=== PATIENT | female | born 1960 | race Hispanic/Latino ===

== ENCOUNTER 2017-12-29 23:06 | Emergency (ER) | payer SELFPAY ==
[2017-12-30 00:20] VITALS: BP 122/81
--- NOTE | 2017-12-30 02:12 | XRay Report ---
FINAL REPORT PROCEDURE: XR FOOT 2V LT TECHNIQUE: LEFT foot radiographs, AP and lateral views. HISTORY: swollen left foot object fell on foot COMPARISON: No prior studies are available for comparison. FINDINGS: Fracture (s) and/or Dislocation(s): None . Alignment: Normal. Joint space(s): Normal. Soft tissues: Normal. Bone mineralization: Normal. Foreign bodies: None. Calcaneal spurring: None. IMPRESSION: Normal Examination.
== END 2017-12-30 04:00 | disposition left against medical advice (07) ==
LOC: ED 23:06
DX: M79.672 Pain in left foot (principal); M79.89 Other specified soft tissue disorders; Z53.21 Procedure and treatment not carried out due to patient leaving prior to being seen by health care provider

== ENCOUNTER 2020-12-01 10:05 | Observation (INO) | payer SELFPAY ==
[2020-12-01] MEDS ORDERED: SODIUM CHLORIDE 0.9% 1000 ML 1,000 ML IV ONE (10:24)
--- NOTE | 2020-12-01 10:25 | Event Note ---
ED Screening Note Date of service: 12/01/20 Time: 10:24 ED Screening Note: 59-year-old female with a past medical history of hepatitis C, anemia, hiatal hernia presents to the ER today with complaints of black tarry stool/and bright red blood in her stool the past couple days. She reports associated abdominal pain. This initial assessment/diagnostic orders/clinical plan/treatment(s) is/are subject to change based on patients health status, clinical progression and re- assessment by fellow clinical providers in the ED. Further treatment and workup at subsequent clinical providers discretion. Patient/guardian urged not to elope from the ED as their condition may be serious if not clinically assessed and managed. Initial orders include: Abdominal pain order set including type and screen
[2020-12-01 10:50] LABS: Basophils # (Auto) 0.1 K/mm3 (0.0-0.1); Basophils % (Auto) 1.1 % (0.0-1.8); Eosinophils # (Auto) 0.1 K/mm3 (0.0-0.4); Lymphocytes % (Auto) 24.2 % (13.4-35.0); Mean Corpuscular HGB Conc 28 % (30-34); Monocytes # (Auto) 0.8 K/mm3 (0.0-0.8); Monocytes % (Auto) 9.9 % (0.0-7.3); Platelet Count 262 K/mm3 (140-440); Red Blood Count 4.19 M/mm3 (3.65-5.03)
[2020-12-01] MEDS ORDERED: PANTOPRAZOLE 40 MG INJ IV ONE (10:52)
[2020-12-01 10:53] LABS: Hematocrit 22.1 % (30.3-42.9); Hemoglobin 6.2 gm/dl (10.1-14.3); Mean Corpuscular Volume 53 fl (79-97); Red Cell Distribution Width 20.5 % (13.2-15.2)
--- NOTE | 2020-12-01 10:59 | Emergency Department Report ---
ED General Adult HPI - General Chief complaint: GI Bleed Stated complaint: POSS BLEEDING ULCER Time Seen by Provider: 12/01/20 10:37 Source: patient Mode of arrival: Ambulatory Limitations: No Limitations - History of Present Illness Initial comments: The patient presents to the emergency department with a chief complaint of dark stools. Patient states she has a history of ulcers and takes Protonix daily. Patient states 3 days ago she began to have slight abdominal pain and upset stomach. Patient states at that time she took Imodium with relief of her symptoms. Patient then states the next morning she had dark stools but is concerned that she was having blood per rectum. Patient states that she has been out of her Protonix for the last couple of days as well. Denies chest pain, shortness breath, or headache -: Sudden Location: abdomen Severity scale (0 -10): 1 Quality: burning Consistency: constant Improves with: none Worsens with: none Associated Symptoms: denies other symptoms Treatments Prior to Arrival: none - Related Data Previous Rx's Medication Instructions Recorded Last Taken Type oxyCODONE /ACETAMINOPHEN [Percocet 1 tab PO Q6HR PRN #20 tablet 12/30/14 Unknown Rx 5/325] HYDROcodone/APAP 10-325 [[place] 1 each PO Q6HR PRN #15 tablet 02/13/15 Unknown Rx 10/325] Ibuprofen [Motrin 800 MG tab] 800 mg PO TID PRN #30 tablet 02/13/15 Unknown Rx HYDROcodone/APAP 5-325 [[place] 1 each PO Q6HR PRN #15 tablet 03/15/15 Unknown Rx 5/325] Allergies Allergy/AdvReac Type Severity Reaction Status Date / Time No Known Allergies Allergy Verified 03/15/15 18:54 ED Review of Systems ROS: Stated complaint: POSS BLEEDING ULCER Other details as noted in HPI Constitutional: denies: chills, fever Eyes: denies: eye pain, eye discharge, vision change ENT: denies: ear pain, throat pain Respiratory: denies: cough, shortness of breath, wheezing Cardiovascular: denies: chest pain, palpitations Endocrine: no symptoms reported Gastrointestinal: abdominal pain, melena. denies: nausea, diarrhea Genitourinary: denies: urgency, dysuria, discharge Musculoskeletal: denies: back pain, joint swelling, arthralgia Skin: denies: rash, lesions Neurological: denies: headache, weakness, paresthesias Psychiatric: denies: anxiety, depression Hematological/Lymphatic: denies: easy bleeding, easy bruising ED Past Medical Hx - Past Medical History Previous Medical History?: Yes Hx GERD: Yes Hx Liver Disease: Yes (HEPATITIS C) Additional medical history: hiatal hernia. GI bleed multiple transfusions. ANEMIA. ESOPHAGEAL STRICTURES - Surgical History Past Surgical History?: Yes Additional Surgical History: hernia repair as infant. - Social History Smoking Status: Never Smoker Substance Use Type: Alcohol - Medications Home Medications: Home Medications Medication Instructions Recorded Confirmed Last Taken Type oxyCODONE /ACETAMINOPHEN [Percocet 1 tab PO Q6HR PRN #20 tablet 12/30/14 Unknown Rx 5/325] HYDROcodone/APAP 10-325 [[place] 1 each PO Q6HR PRN #15 tablet 02/13/15 Unknown Rx 10/325] Ibuprofen [Motrin 800 MG tab] 800 mg PO TID PRN #30 tablet 02/13/15 Unknown Rx HYDROcodone/APAP 5-325 [[place] 1 each PO Q6HR PRN #15 tablet 03/15/15 Unknown Rx 5/325] ED Physical Exam - General Limitations: No Limitations General appearance: alert, in no apparent distress - Head Head exam: Present: atraumatic, normocephalic - Eye Eye exam: Present: normal appearance, PERRL, EOMI - ENT ENT exam: Present: mucous membranes moist - Neck Neck exam: Present: normal inspection - Respiratory Respiratory exam: Present: normal lung sounds bilaterally. Absent: respiratory distress - Cardiovascular Cardiovascular Exam: Present: regular rate, normal rhythm. Absent: systolic murmur, diastolic murmur, rubs, gallop - GI/Abdominal GI/Abdominal exam: Present: soft, normal bowel sounds. Absent: distended, tenderness - Rectal Rectal exam: Present: heme (+) stool, hemorrhoids, other (Chaperoned by Nurse Lizeth AUGUST there external hemorrhoids present on exam; guaiac positive ) - Extremities Exam Extremities exam: Present: normal inspection - Back Exam Back exam: Present: normal inspection - Neurological Exam Neurological exam: Present: alert, oriented X3, CN II-XII intact. Absent: motor sensory deficit - Psychiatric Psychiatric exam: Present: normal affect, normal mood - Skin Skin exam: Present: warm, dry, intact, normal color. Absent: rash ED Course Vital Signs 12/01/20 12/01/20 12/01/20 10:26 10:46 13:02 Temperature 98.1 F 98.4 F Pulse Rate 87 86 89 Pulse Rate [ Lying] Pulse Rate [ Sitting] Pulse Rate [ Standing] Respiratory 16 15 16 Rate Blood Pressure 140/61 148/70 Blood Pressure [Lying] Blood Pressure [Sitting] Blood Pressure [Standing] O2 Sat by Pulse 100 99 95 Oximetry 12/01/20 12/01/20 12/01/20 13:17 13:47 14:17 Temperature 98.4 F 98.2 F 98.4 F Pulse Rate 91 H 83 90 Pulse Rate [ Lying] Pulse Rate [ Sitting] Pulse Rate [ Standing] Respiratory 16 16 16 Rate Blood Pressure 139/72 148/67 149/66 Blood Pressure [Lying] Blood Pressure [Sitting] Blood Pressure [Standing] O2 Sat by Pulse 96 95 96 Oximetry 12/01/20 12/01/20 14:23 14:47 Temperature 98.4 F Pulse Rate 84 Pulse Rate [ 89 Lying] Pulse Rate [ 90 Sitting] Pulse Rate [ 90 Standing] Respiratory 16 Rate Blood Pressure 142/67 Blood Pressure 141/73 [Lying] Blood Pressure 144/65 [Sitting] Blood Pressure 135/57 [Standing] O2 Sat by Pulse 95 Oximetry ED Medical Decision Making - Lab Data Result diagrams: 12/01/20 10:34 12/01/20 10:34 Lab Results 12/01/20 12/01/20 12/01/20 Range/Units 10:34 10:34 10:34 WBC 8.1 (4.5-11.0) K/mm3 RBC 4.19 (3.65-5.03) M/mm3 Hgb 6.2 L (10.1-14.3) gm/dl Hct 22.1 L (30.3-42.9) % MCV 53 L (79-97) fl MCH 15 L (28-32) pg MCHC 28 L (30-34) % RDW 20.5 H (13.2-15.2) % Plt Count 262 (140-440) K/mm3 Lymph % (Auto) 24.2 (13.4-35.0) % [place] % (Auto) 9.9 H (0.0-7.3) % Eos % (Auto) 1.0 (0.0-4.3) % Baso % (Auto) 1.1 (0.0-1.8) % Lymph # (Auto) 2.0 (1.2-5.4) K/mm3 [place] # (Auto) 0.8 (0.0-0.8) K/mm3 Eos # (Auto) 0.1 (0.0-0.4) K/mm3 Baso # (Auto) 0.1 (0.0-0.1) K/mm3 Seg Neutrophils % 63.8 (40.0-70.0) % Seg Neutrophils # 5.2 (1.8-7.7) K/mm3 PT 13.1 (12.2-14.9) Sec. INR 1.01 (0.87-1.13) APTT 27.8 (24.2-36.6) Sec. Sodium 138 (137-145) mmol/L Potassium 3.7 (3.6-5.0) mmol/L Chloride 103.0 (98-107) mmol/L Carbon Dioxide 25 (22-30) mmol/L Anion Gap 14 mmol/L BUN 17 (7-17) mg/dL Creatinine 0.9 (0.6-1.2) mg/dL Estimated GFR > 60 ml/min BUN/Creatinine Ratio 19 % Glucose 80 (65-100) mg/dL Calcium 8.9 (8.4-10.2) mg/dL Total Bilirubin 0.30 (0.1-1.2) mg/dL AST 15 (5-40) units/L ALT 10 (7-56) units/L Alkaline Phosphatase 72 (35-129) units/L Total Protein 6.5 (6.3-8.2) g/dL Albumin 3.6 L (3.9-5) g/dL Albumin/Globulin Ratio 1.2 % Lipase 71 H (13-60) units/L Blood Type Antibody Screen Crossmatch 12/01/20 Range/Units 10:34 WBC (4.5-11.0) K/mm3 RBC (3.65-5.03) M/mm3 Hgb (10.1-14.3) gm/dl Hct (30.3-42.9) % MCV (79-97) fl MCH (28-32) pg MCHC (30-34) % RDW (13.2-15.2) % Plt Count (140-440) K/mm3 Lymph % (Auto) (13.4-35.0) % [place] % (Auto) (0.0-7.3) % Eos % (Auto) (0.0-4.3) % Baso % (Auto) (0.0-1.8) % Lymph # (Auto) (1.2-5.4) K/mm3 [place] # (Auto) (0.0-0.8) K/mm3 Eos # (Auto) (0.0-0.4) K/mm3 Baso # (Auto) (0.0-0.1) K/mm3 Seg Neutrophils % (40.0-70.0) % Seg Neutrophils # (1.8-7.7) K/mm3 PT (12.2-14.9) Sec. INR (0.87-1.13) APTT (24.2-36.6) Sec. Sodium (137-145) mmol/L Potassium (3.6-5.0) mmol/L Chloride (98-107) mmol/L Carbon Dioxide (22-30) mmol/L Anion Gap mmol/L BUN (7-17) mg/dL Creatinine (0.6-1.2) mg/dL Estimated GFR ml/min BUN/Creatinine Ratio % Glucose (65-100) mg/dL Calcium (8.4-10.2) mg/dL Total Bilirubin (0.1-1.2) mg/dL AST (5-40) units/L ALT (7-56) units/L Alkaline Phosphatase (35-129) units/L Total Protein (6.3-8.2) g/dL Albumin (3.9-5) g/dL Albumin/Globulin Ratio % Lipase (13-60) units/L Blood Type O POSITIVE Antibody Screen Negative Crossmatch See Detail - Radiology Data Radiology results: report reviewed - Medical Decision Making Packed RBCs transfusion ordered in the ED Critical Care Time: Yes Critical care time in (mins) excluding proc time.: 35 Critical care attestation.: If time is entered above; I have spent that time in minutes in the direct care of this critically ill patient, excluding procedure time. ED Disposition Clinical Impression: Anemia requiring transfusions, Guaiac positive stools Disposition: OP ADMIT IP TO THIS HOSP Is pt being admited?: Yes Does the pt Need Aspirin: No Condition: Fair Forms: Accompanied Note
[2020-12-01 11:01] LABS: INR 1.01 (0.87-1.13)
[2020-12-01 11:02] LABS: Partial Thromboplastin Time 27.8 Sec. (24.2-36.6)
[2020-12-01] MEDS ORDERED: SODIUM CHLORIDE 0.9% 500 ML 500 ML IV ONE (11:09)
[2020-12-01 11:15] LABS: Alanine Aminotransferase 10 units/L (7-56); Albumin 3.6 g/dL (3.9-5); BUN/Creatinine Ratio 19; Blood Urea Nitrogen 17 mg/dL (7-17); Calcium 8.9 mg/dL (8.4-10.2); Hemolysis Index 0
--- NOTE | 2020-12-01 13:31 | Cat Scan Report ---
CT ABDOMEN AND PELVIS WITH CONTRAST INDICATION / CLINICAL INFORMATION: abdominal pain/dark stools. TECHNIQUE: Axial CT images were obtained through the abdomen and pelvis after IV contrast. All CT sc ans at this location are performed using CT dose reduction for ALARA by means of automated exposure c ontrol. COMPARISON: None available. FINDINGS: LOWER CHEST: Large paraesophageal hernia. The entirety of the stomach is intrathoracic with suspected organoaxial volvulus, which appears incomplete. There is mucosal enhancement and mural thickening of the stomach. LIVER: No significant abnormality GALLBLADDER/BILIARY TREE: No significant abnormality PANCREAS: No significant abnormality SPLEEN: Spleen is enlarged, measuring 14.2 cm. ADRENALS: No significant abnormality KIDNEYS / URETER: No significant abnormality URINARY BLADDER: Bladder is partially decompressed, though grossly unremarkable. REPRODUCTIVE ORGANS: No significant abnormality STOMACH / SMALL BOWEL: Stomach and small bowel are normal in caliber. No evidence of bowel inflammati on. COLON: The colon is unremarkable. Appendix not seen. LYMPH NODES: No significant adenopathy. VASCULATURE: No significant abnormality. OTHER: No free air, free fluid, or focal fluid collection is identified. SKELETAL SYSTEM: No acute osseous findings. IMPRESSION: 1. Large paraesophageal hernia with suspected incomplete organoaxial volvulus. There is mucosal enhan cement and mural thickening of the stomach, which may reflect inflammation. Early ischemia cannot be entirely excluded. No evidence of obstruction. 2. Nonspecific mild splenomegaly. 3. Other chronic, incidental findings as above. Findings were discussed with Dr. Lemos by phone on 12/01/2020 at 12:26 PM. Signer Name: Ariel Nunez MD Signed: 12/01/2020 1:26 PM Workstation Name: [email or web address]
--- NOTE | 2020-12-01 18:40 | History and Physical Report ---
History of Present Illness Date of examination: 12/01/20 Date of admission: 12/01/20 15:07 Chief complaint: Severe weakness History of present illness: 49-year-old female with history of hepatitis C, peptic ulcer disease, multiple transfusions in the past, esophageal strictures and are not taking any NSAIDs on a regular basis comes in for black stools and feeling very weak. Patient took Imodium without any relief. On further history taking she had black stools. No abdominal pain. No syncope or lightheadedness. In the emergency room hemoglobin was about 6.2. Guaiac Status not known. Patient takes ibuprofen on a regular basis - Past Medical History Previous Medical History?: Yes --GERD: Yes -- Liver Disease: Yes (HEPATITIS C) Additional medical history: hiatal hernia. GI bleed multiple transfusions. ANEMIA. ESOPHAGEAL STRICTURES - Surgical History Past Surgical History?: Yes Additional Surgical History: hernia repair as infant. - Social History Smoking Status: Never Smoker Substance Use Type: Alcohol Family history Htn - Medications Home Medications: Home Medications Medication Instructions Recorded Confirmed Last Taken Type oxyCODONE /ACETAMINOPHEN [Percocet 1 tab PO Q6HR PRN #20 tablet 12/30/14 Unk nown Rx 5/325] HYDROcodone/APAP 10-325 [[place] 1 each PO Q6HR PRN #15 tablet 02/13/15 Unknown Rx 10/325] Ibuprofen [Motrin 800 MG tab] 800 mg PO TID PRN #30 tablet 02/13/15 Unknown Rx HYDROcodone/APAP 5-325 [[place] 1 each PO Q6HR PRN #15 tablet 03/15/15 Unknown Rx 5/325] Review of Systems ROS: Stated complaint: POSS BLEEDING ULCER Other details as noted in HPI Constitutional: denies: chills, fever Eyes: denies: eye pain, eye discharge, vision change ENT: denies: ear pain, throat pain Respiratory: denies: cough, shortness of breath, wheezing Cardiovascular: denies: chest pain, palpitations Endocrine: no symptoms reported Gastrointestinal: abdominal pain, melena. denies: nausea, diarrhea Genitourinary: denies: urgency, dysuria, discharge Musculoskeletal: denies: back pain, joint swelling, arthralgia Skin: denies: rash, lesions Neurological: denies: headache, weakness, paresthesias Psychiatric: denies: anxiety, depression Hematological/Lymphatic: denies: easy bleeding, easy bruising Medications and Allergies Allergies Allergy/AdvReac Type Severity Reaction Status Date / Time No Known Allergies Allergy Verified 03/15/15 18:54 Home Medications Medication Instructions Recorded Confirmed Last Taken Type oxyCODONE /ACETAMINOPHEN [Percocet 1 tab PO Q6HR PRN #20 tablet 12/30/14 12/01/20 Unknown Rx 5/325] HYDROcodone/APAP 10-325 [[place] 1 each PO Q6HR PRN #15 tablet 02/13/15 12/01/20 Unknown Rx 10/325] Ibuprofen [Motrin 800 MG tab] 800 mg PO TID PRN #30 tablet 02/13/15 12/01/20 Unknown Rx HYDROcodone/APAP 5-325 [[place] 1 each PO Q6HR PRN #15 tablet 03/15/15 12/01/20 Unknown Rx 5/325] Exam - Constitutional Vitals: Temp Pulse Resp BP Pulse Ox 98.4 F 85 16 158/80 96 12/01/20 15:17 12/01/20 17:01 12/01/20 17:01 12/01/20 17:01 12/01/20 17:01 General appearance: Present: no acute distress, well-nourished - EENT Eyes: Present: PERRL ENT: hearing intact, clear oral mucosa - Neck Neck: Present: supple, normal ROM - Respiratory Respiratory effort: normal Respiratory: bilateral: CTA - Cardiovascular Heart rate: 88 Rhythm: regular Heart Sounds: Present: S1 & S2. Absent: rub, click - Extremities Extremities: no ischemia, pulses symmetrical, No edema Peripheral Pulses: within normal limits - Abdominal General gastrointestinal: Present: soft, non-tender, non-distended, normal bowel sounds Female genitourinary: Present: normal - Rectal Rectal Exam: stool dark - Integumentary Integumentary: Present: clear, warm, dry - Musculoskeletal Musculoskeletal: gait normal, strength equal bilaterally - Psychiatric Psychiatric: appropriate mood/affect, intact judgment & insight - Neurologic Neurologic: CNII-XII intact, moves all extremities Results - Labs CBC & Chem 7: 12/02/20 04:34 12/02/20 04:34 Labs: Laboratory Last Values WBC 8.1 K/mm3 (4.5-11.0) 12/01/20 10:34 RBC 4.19 M/mm3 (3.65-5.03) 12/01/20 10:34 Hgb 6.2 gm/dl (10.1-14.3) L 12/01/20 10:34 Hct 22.1 % (30.3-42.9) L 12/01/20 10:34 MCV 53 fl (79-97) L 12/01/20 10:34 MCH 15 pg (28-32) L 12/01/20 10:34 MCHC 28 % (30-34) L 12/01/20 10:34 RDW 20.5 % (13.2-15.2) H 12/01/20 10:34 Plt Count 262 K/mm3 (140-440) 12/01/20 10:34 Lymph % (Auto) 24.2 % (13.4-35.0) 12/01/20 10:34 [place] % (Auto) 9.9 % (0.0-7.3) H 12/01/20 10:34 Eos % (Auto) 1.0 % (0.0-4.3) 12/01/20 10:34 Baso % (Auto) 1.1 % (0.0-1.8) 12/01/20 10:34 Lymph # (Auto) 2.0 K/mm3 (1.2-5.4) 12/01/20 10:34 [place] # (Auto) 0.8 K/mm3 (0.0-0.8) 12/01/20 10:34 Eos # (Auto) 0.1 K/mm3 (0.0-0.4) 12/01/20 10:34 Baso # (Auto) 0.1 K/mm3 (0.0-0.1) 12/01/20 10:34 Seg Neutrophils % 63.8 % (40.0-70.0) 12/01/20 10:34 Seg Neutrophils # 5.2 K/mm3 (1.8-7.7) 12/01/20 10:34 PT 13.1 Sec. (12.2-14.9) 12/01/20 10:34 INR 1.01 (0.87-1.13) 12/01/20 10:34 APTT 27.8 Sec. (24.2-36.6) 12/01/20 10:34 Sodium 138 mmol/L (137-145) 12/01/20 10:34 Potassium 3.7 mmol/L (3.6-5.0) 12/01/20 10:34 Chloride 103.0 mmol/L (98-107) 12/01/20 10:34 Carbon Dioxide 25 mmol/L (22-30) 12/01/20 10:34 Anion Gap 14 mmol/L 12/01/20 10:34 BUN 17 mg/dL (7-17) 12/01/20 10:34 Creatinine 0.9 mg/dL (0.6-1.2) 12/01/20 10:34 Estimated GFR > 60 ml/min 12/01/20 10:34 BUN/Creatinine Ratio 19 % 12/01/20 10:34 Glucose 80 mg/dL (65-100) 12/01/20 10:34 Calcium 8.9 mg/dL (8.4-10.2) 12/01/20 10:34 Total Bilirubin 0.30 mg/dL (0.1-1.2) 12/01/20 10:34 AST 15 units/L (5-40) 12/01/20 10:34 ALT 10 units/L (7-56) 12/01/20 10:34 Alkaline Phosphatase 72 units/L (35-129) 12/01/20 10:34 Total Protein 6.5 g/dL (6.3-8.2) 12/01/20 10:34 Albumin 3.6 g/dL (3.9-5) L 12/01/20 10:34 Albumin/Globulin Ratio 1.2 % 12/01/20 10:34 Lipase 71 units/L (13-60) H 12/01/20 10:34 Blood Type O POSITIVE 12/01/20 10:34 Antibody Screen Negative 12/01/20 10:34 Crossmatch See Detail 12/01/20 10:34 - Imaging and Cardiology EKG: report reviewed (No acute ST-T wave changes) Assessment and Plan Advance Directives: Yes (Full code) VTE prophylaxis?: Chemical Plan of care discussed with patient/family: Yes - Patient Problems (1) Anemia requiring transfusions Current Visit: Yes Status: Acute Plan to address problem: Transfuse 1 to 2 units (2) Upper GI bleed Current Visit: Yes Status: Acute Plan to address problem: Suspected secondary to AMAYA Patient on Motrin on a regular basis GI consult for possible upper endoscopy IV Protonix drip (3) GERD (gastroesophageal reflux disease) Current Visit: Yes Status: Chronic Qualifiers: Esophagitis bleeding: with hemorrhage Plan to address problem: IV Protonix drip (4) Hepatitis C Current Visit: Yes Status: Chronic Qualifiers: Viral hepatitis chronicity: chronic Hepatic coma status: without hepatic coma Qualified Code(s): B18.2 - Chronic viral hepatitis C Plan to address problem: Follow-up with GI as outpatient (5) DVT prophylaxis Current Visit: Yes Status: Acute Plan to address problem: SCDs and GI prophylaxis
[2020-12-01] MEDS ORDERED: METOCLOPRAMIDE 10 MG/2 ML INJ IV PRN (18:41)
[2020-12-01] MEDS ORDERED: HYDROmorphone 1 MG/1 ML INJ IV PRN (18:41)
[2020-12-01] MEDS ORDERED: ONDANSETRON 4 MG/2 ML INJ IV PRN (18:41)
[2020-12-01] MEDS ORDERED: ACETAMINOPHEN 325 MG TAB PO PRN (18:41)
[2020-12-01] MEDS ORDERED: PANTOPRAZOLE 80 MG in SODIUM CHLORIDE 0.9% 100 ML IV SCH (20:00)
[2020-12-01] MEDS: D5W/0.9% NACL 1,000 ML IV SCH (21:20)
[2020-12-02 05:31] LABS: Mean Corpuscular HGB Conc 29 % (30-34); Platelet Count 210 K/mm3 (140-440); Red Blood Count 4.42 M/mm3 (3.65-5.03)
[2020-12-02 05:32] LABS: Hematocrit 25.8 % (30.3-42.9); Hemoglobin 7.5 gm/dl (10.1-14.3); Mean Corpuscular Volume 58 fl (79-97); Red Cell Distribution Width 25.7 % (13.2-15.2)
[2020-12-02 05:48] LABS: Alanine Aminotransferase 10 units/L (7-56); Albumin 3.5 g/dL (3.9-5); Blood Urea Nitrogen 9 mg/dL (7-17); Calcium 8.5 mg/dL (8.4-10.2); Hemolysis Index 1
[2020-12-02 05:51] LABS: BUN/Creatinine Ratio 13
[2020-12-02 06:24] LABS: Total Cells Counted 100
[2020-12-02 06:27] LABS: Anisocytosis 2+; Hypochromasia 3+; Schistocytes Few
[2020-12-02 06:28] LABS: Platelet Estimate Consistent w Auto
[2020-12-02] MEDS: D5W/0.9% NACL 1,000 ML IV SCH (09:52)
--- NOTE | 2020-12-02 11:10 | Consultation ---
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 Here, she was found to be profoundly anemic with an MCV of 5 3. Stool was positive for occult blood. GI consultation is obtained. 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 She states that she was transfused every 3 months previously, but this has improved to about once a year ever since she started on proton pump inhibitors several years ago. She ran out of proton pump inhibitors several months ago. Patient states that she has had multiple endoscopies and colonoscopies, the last being 3 years ago for both. She has esophageal strictures, a known history of hiatal hernia, and Javi ulcers(she actually knew the name). She has not been taking any iron over the years because she states that it makes her nauseated. She has not had any medical follow-up on an outpatient basis. She denies chest pain, short miss of breath, lightheadedness or dizziness. She has mild dysphagia but she is doing well with cutting up her food. She denies significant GERD. She denies any weight loss over the last several months. There has been no nausea or vomiting. She has not seen hematochezia. Bowel movements daily to every other day without any change. Meds reviewed. Past History Past Medical History: anemia (since ~ 2005, Iron deficient, requiring transfusions), GERD, other (Javi ulcers) Past Surgical History: No surgical history Social history: Lives alone. denies: smoking (Occ EtOH) Medications and Allergies Allergies Allergy/AdvReac Type Severity Reaction Status Date / Time No Known Allergies Allergy Verified 03/15/15 18:54 Home Medications Medication Instructions Recorded Confirmed Last Taken Type oxyCODONE /ACETAMINOPHEN [Percocet 1 tab PO Q6HR PRN #20 tablet 12/30/14 12/01/20 Unknown Rx 5/325] HYDROcodone/APAP 10-325 [Crum 1 each PO Q6HR PRN #15 tablet 02/13/15 12/01/20 Unknown Rx 10/325] Ibuprofen [Motrin 800 MG tab] 800 mg PO TID PRN #30 tablet 02/13/15 12/01/20 Unknown Rx HYDROcodone/APAP 5-325 [Crum 1 each PO Q6HR PRN #15 tablet 03/15/15 12/01/20 Unknown Rx 5/325] Active Meds: Active Medications Acetaminophen (Acetaminophen 325 Mg Tab) 650 mg PO Q4H PRN PRN Reason: Pain MILD(1-3)/Fever >100.5/ALONSO Hydromorphone HCl (Hydromorphone 1 Mg/1 Ml Inj) 0.5 mg IV Q3H PRN PRN Reason: Pain , Severe (7-10) Dextrose/Sodium Chloride (D5ns) 1,000 mls @ 100 mls/hr IV DIRECT CUCO Last Admin: 12/02/20 09:52 Dose: 100 mls/hr Documented by: Pantoprazole Sodium 80 mg/ (Sodium Chloride) 100 mls @ 10 mls/hr IV DIRECT CUCO Last Admin: 12/01/20 21:20 Dose: 8 mg/hr, 10 mls/hr Documented by: Metoclopramide HCl (Metoclopramide 10 Mg/2 Ml Inj) 10 mg IV Q6H PRN PRN Reason: Nausea And Vomiting Ondansetron HCl (Ondansetron 4 Mg/2 Ml Inj) 4 mg IV Q3H PRN PRN Reason: Nausea And Vomiting Sodium Chloride (Sodium Chloride 0.9% 10 Ml Flush Syringe) 10 ml IV BID [facility] Last Admin: 12/02/20 09:09 Dose: 10 ml Documented by: Sodium Chloride (Sodium Chloride 0.9% 10 Ml Flush Syringe) 10 ml IV PRN PRN PRN Reason: LINE FLUSH Review of Systems All systems: negative (as per HPI) Exam - Constitutional Vitals: Temp Pulse Resp BP Pulse Ox 98.5 F 93 H 20 171/85 99 12/02/20 04:25 12/01/20 21:07 12/02/20 10:00 12/02/20 04:25 12/01/20 22:00 General appearance: Present: no acute distress - EENT Eyes: Present: PERRL, EOM intact ENT: hearing intact - Respiratory Respiratory effort: normal Respiratory: bilateral: CTA - Cardiovascular Rhythm: regular Heart Sounds: Present: S1 & S2 - Extremities Extremities: No edema - Abdominal General gastrointestinal: Present: soft, non-tender - Rectal Rectal Exam: other (Normal exam, whitish mucus noted, no blood or brown stool) Results - Labs CBC & Chem 7: 12/02/20 04:34 12/02/20 04:34 Labs: Abnormal lab results 12/01/20 12/01/20 12/02/20 Range/Units 10:34 10:34 04:34 WBC 3.7 L (4.5-11.0) K/mm3 Hgb 7.5 L (10.1-14.3) gm/dl Hct 25.8 L (30.3-42.9) % MCV 58 L (79-97) fl MCH 17 L (28-32) pg MCHC 29 L (30-34) % RDW 25.7 H (13.2-15.2) % Lymphocytes % (Manual) 41.0 H (13.4-35.0) % Total Protein (6.3-8.2) g/dL Albumin 3.6 L (3.9-5) g/dL Lipase 71 H (13-60) units/L Crossmatch See Detail 12/02/20 Range/Units 04:34 WBC (4.5-11.0) K/mm3 Hgb (10.1-14.3) gm/dl Hct (30.3-42.9) % MCV (79-97) fl MCH (28-32) pg MCHC (30-34) % RDW (13.2-15.2) % Lymphocytes % (Manual) (13.4-35.0) % Total Protein 6.0 L (6.3-8.2) g/dL Albumin 3.5 L (3.9-5) g/dL Lipase (13-60) units/L Crossmatch Assessment and Plan 1. Iron deficiency anemia/heme positive stool -chronic and longstanding. Due to Javi ulcer most likely. She had been doing well on proton pump inhibitors, but ran out several months ago. No evidence of significant active bleeding at present, and patient is hemodynamically stable. -Chronic proton pump inhibitor -Patient advised to try different formulations of iron to see if she can tolerate any of them. -Agree with transfusion today, and advance diet. If she does well and hemoglobin is stable, she can be discharged home. -I discussed outpatient care with her. She is a [facility] resident and I advised that she go to [facility] so she can get her medications and blood work done routinely and not require transfusions in the future. If not, I also discussed the availability of other free clinics. No plans for endoscopy. Will sign off.
--- NOTE | 2020-12-02 11:24 | Discharge Summary ---
Providers - Providers Date of Admission: 12/01/20 15:07 Date of discharge: 12/02/20 Attending physician: MARLEN SALAS 12/01/20 18:41 Consult to Physician [CONS] Routine Comment: Consulting Provider: LUCIAN MOLINA Physician Instructions: Reason For Exam: Upper GI bleed Primary care physician: IRON ERECTOR Hospitalization Condition: Fair Hospital course: 49-year-old female with history of hepatitis C, peptic ulcer disease, multiple transfusions in the past, esophageal strictures and are not taking any NSAIDs on a regular basis comes in for black stools and feeling very weak. Patient took Imodium without any relief. On further history taking she had black stools. No abdominal pain. No syncope or lightheadedness. In the emergency room hemoglobin was about 6.2. Guaiac Status not known. Here in ER, she was transfused 1 unit of packed red blood cells. Her hemoglobin transfusion is 7.5. She has remained hemodynamically stable. She apparently ran out of proton pump inhibitors for several months. She has a history of chronic blood transfusions. GI evaluated patient and no endoscopy is needed at this time. She has had multiple endoscopies in the past. Patient will be discharged home to follow-up with PCP and GI. She will be prescribed proton pump inhibitors. She remains hemodynamically stable her hemoglobin on discharge is 7.5-she denies any bleeding. Disposition: - TO HOME OR SELFCARE Time spent for discharge: 30 minutes - Discharge Diagnoses (1) Anemia requiring transfusions Status: Acute Core Measure Documentation - Palliative Care Palliative Care/ Comfort Measures: Not Applicable - Core Measures Any of the following diagnoses?: none Exam - Physical Exam Narrative exam: VITAL SIGNS: Reviewed. GENERAL: Awake HEAD: No signs of head trauma. EYES: Pupils are equal. Extraocular motions intact. MOUTH: Oropharynx is normal. NECK: No adenopathy, no JVD. CHEST: Chest with diminished breath sounds bilaterally. No wheezes, rales, or rhonchi. CARDIAC: normal S1 and S2, without murmurs, gallops, or rubs. ABDOMEN: Soft, non tender and non distended. No rebound or guarding, and no masses palpated. Bowel Sounds normal. MUSCULOSKELETAL: No edema NEUROLOGIC EXAM: Alert and oriented x3. No focal neurologic deficits SKIN: No obvious lesions - Constitutional Vitals: Temp Pulse Resp BP Pulse Ox 98.5 F 93 H 20 171/85 99 12/02/20 04:25 12/01/20 21:07 12/02/20 10:00 12/02/20 04:25 12/01/20 22:00 Plan Activity: no restrictions Additional Instructions: Continue pantoprazole as ordered. Follow-up with your primary medical doctor in 3-4 days for a repeat hemoglobin. Follow up with: PRIMARY CARE, [Primary Care Provider] - 3-5 Days Forms: Accompanied Note, Work/School Release Form Prescriptions: B1/B2/B3/B5/B6/Iron/Meth/Choln [Geritol Tonic] 10 ml PO DAILY #30 liquid Pantoprazole [Protonix TAB] 40 mg PO QDAY #60 tablet
[2020-12-02 12:39] VITALS: BP 155/79
== END 2020-12-02 15:45 | disposition home or self-care (01) ==
LOC: ED 10:05 → 3A 15:07
PROVIDERS: ADMIT Internal Medicine; ATTEND Internal Medicine
DX: D64.9 Anemia, unspecified (principal); R19.5 Other fecal abnormalities; K92.2 Gastrointestinal hemorrhage, unspecified; K21.9 Gastro-esophageal reflux disease without esophagitis; B18.2 Chronic viral hepatitis C; Z98.890 Other specified postprocedural states; Z98.891 History of uterine scar from previous surgery; Z79.899 Other long term (current) drug therapy
CPT/HCPCS: 36415; 36430; 74177; 80053; 83036; 83690; 85007; 85025; 85610; 85730; 86850; 86900; 86901; 86920; 96361; 96365; 96376; 99291; C9113; G0378; J7030; J7040; J7042; P9016; Q9967